=== PATIENT | female | born 1975 | race Two or more races ===

== ENCOUNTER 2019-10-11 08:16 | Emergency (ER) | payer OTHER ==
[~2019-10-11] VITALS: Ht 165.1 cm; Wt 80.9 kg
[~2019-10-11 08:16] MED LIST: [UNRECOGNIZED DRUG - OTHER]
[2019-10-11] MEDS ORDERED: ALBUTEROL/IPRATROPIUM 2.5MG/0.5MG, 3 ML NPPB ONE (09:30)
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
[2019-10-11] MEDS ORDERED: ALBUTEROL/IPRATROPIUM 2.5MG/0.5MG, 3 ML ONE (09:37)
--- NOTE | 2019-10-11 09:45 | NUR ---
RT AT BEDSIDE-NEBULIZER PERFORMED
[2019-10-11 10:04] LABS: RAPID INFLUENZA A Negative (Negative); RAPID INFLUENZA B Negative (Negative)
--- NOTE | 2019-10-11 10:07 | NUR ---
WITH REASSESSMENT-PATIENT REPORTS POST BREATHING TREATMENT "MY SOB IS IMPROVED FROM 05/05 TO 12/03." VSS ON LABOR AND DELIVERY REGISTERED NURSE (AFEBRILE, POX 98% ON RA) UPDATED ON ESTIMATED POC
[2019-10-11] MEDS ORDERED: SODIUM CHLORIDE FLUSH 10ML SYR IVF ONE (10:30)
[2019-10-11 10:43] LABS: BASOPHILS # (AUTO) 0.02 x10^3/uL (0-0.1); BASOPHILS % (AUTO) 0 % (0-1); EOSINOPHILS # (AUTO) 0.36 x10^3/uL (0-0.4); EOSINOPHILS % (AUTO) 5 % (1-7); LYMPHOCYTES # (AUTO) 1.25 x10^3/uL (1-3.4); LYMPHOCYTES % (AUTO) 16 % (22-44); MD NO; MEAN CORPUSCULAR HEMOGLOBIN 24.4 pg (27.0-34.8); MEAN CORPUSCULAR HGB CONC 32.4 g/dL (32.4-35.8); MEAN CORPUSCULAR VOLUME 75.3 fL (80-100); MEAN PLATELET VOLUME 9.3 fL (7.4-10.4); MONOCYTES # (AUTO) 0.43 x10^3/uL (0.2-0.8); MONOCYTES % (AUTO) 5 % (2-9); NEUTROPHILS # (AUTO) 6.01 x10^3/uL (1.8-6.8); NEUTROPHILS % (AUTO) 74 % (42-75); PLATELET COUNT 354 x10^3/uL (130-400); RED BLOOD COUNT 4.24 x10^6/uL (3.82-5.3); RED CELL DISTRIBUTION WIDTH 18.1 % (9.6-15.2)
[2019-10-11 10:53] LABS: ALBUMIN 3.1 g/dL (3.4-5.0); ANION GAP 5 mmol/L (5-15); CALCIUM 8.1 mg/dL (8.5-10.1); CHLORIDE 108 mmol/L (98-107)
--- NOTE | 2019-10-11 11:17 | NUR ---
PIV PLACED FOR CT-CT MADE AWARE POC DISCUSSED WITH PROVIDER- TO CT TO DETERMINE IF LUNG NODULE INFILTRATE OR MASS THEN D/C VSS ON NIBP/POX UPDATED ON POC
--- NOTE | 2019-10-11 11:40 | NUR ---
TO CT SCAN
[2019-10-11] MEDS ORDERED: OMNIPAQUE 350 MG/ML, 100ML BOTTLE ONE (11:58)
[2019-10-11 12:47] VITALS: BP 138/75
--- NOTE | 2019-10-11 13:38 | NUR ---
walked directly out (did not stiop at registration d/c desk) d/t liklihood of covid-19 phone [phone]
--- NOTE | 2019-10-11 13:40 | NUR ---
reviewed quartinine requirement/sxs requiring return to care
== END 2019-10-11 13:41 | disposition home or self-care (01) ==
LOC: ED 13:00
DX: J12.9 Viral pneumonia, unspecified (principal); Z20.828 Contact with and (suspected) exposure to other viral communicable diseases; B34.9 Viral infection, unspecified
CPT/HCPCS: 36415; 71045; 71275; 80048; 82040; 85025; 87400; 87486; 87581; 87633; 87798; 93005; 94640; 99285; Q9967